=== PATIENT | female | born 1980 | race Caucasian/White ===

== ENCOUNTER 2023-08-08 23:07 | Emergency (ER) | payer MEDICAID, SELFPAY ==
[2023-08-08 23:07] VITALS: BP 133/75; PULSE 70; RESP 16; TEMP 36.6; O2SAT 99; BMI 33.4
[2023-08-08 23:31] VITALS: BP 118/72; PULSE 70; RESP 18; O2SAT 100
--- NOTE | 2023-08-08 23:36 | XR_ITS ---
PROCEDURE INFORMATION: Exam: XR Right Foot Exam date and time: 08/08/2023 11:40 PM Age: 42 years old Clinical indication: Injury or trauma; Fall; Blunt trauma; Foot; Right; Additional info: Fall, eversion injuryf TECHNIQUE: Imaging protocol: Radiologic exam of the right foot. Views: 3 or more views. Total images: 3 COMPARISON: CR XR ANKLE RT MIN 3V 08/08/2023 11:40 PM FINDINGS: Bones/joints: No acute fracture or joint dislocation. No concerning bone lesions or calcifications. Joint spaces are appropriate for age. Benign corticated ossicles lateral to the cuboid. Prominent calcaneal enthesophyte at the Achilles tendon insertion. Acute ankle fracture described separately. Soft tissues: Soft tissue swelling hindfoot and ankle. IMPRESSION: Negative right foot.
--- NOTE | 2023-08-08 23:36 | XR_ITS ---
PROCEDURE INFORMATION: Exam: XR Right Ankle Exam date and time: 08/08/2023 11:40 PM Age: 42 years old Clinical indication: Injury or trauma; Fall; Blunt trauma; Ankle; Right; Additional info: Fall, eversion injury TECHNIQUE: Imaging protocol: Radiologic exam of the right ankle. Views: 3 or more views. Total images: 6 COMPARISON: CR XR FOOT RT MIN 3V 08/08/2023 11:40 PM FINDINGS: Bones/joints: Acute mildly comminuted and displaced fracture of the distal fibula at the lateral malleolus. Lateral malleolus is displaced posterior to the proximal shaft on the lateral view. There is disruption of the ankle mortise. Acute mildly displaced transverse fracture through the base of the medial malleolus. Also, suspect acute fracture of the posterior malleolus. Tibiotalar joint effusion. No joint dislocation. Soft tissues: Moderate soft tissue swelling. IMPRESSION: 1. Acute trimalleolar right ankle fracture without dislocation. 2. Soft tissue swelling and joint effusion.
--- NOTE | 2023-08-08 23:38 | ED_ITS ---
Discharge Plan Disposition Patient Disposition: Home, Self-Care Prescriptions Prescriptions: New oxycodone 5 mg tablet 10 mg PO Q8H PRN (Reason: pain) 3 Days Qty: 18 0RF ondansetron HCl 4 mg tablet 4 mg PO Q8H PRN (Reason: nausea and vomiting) 5 Days Qty: 30 0RF Referrals Follow up/Referrals: Cody Gibbons DO [Staff Physician] - See instructions Patrick Pierre MD [Emergency Provider] - See instructions Provider,MD Kacie [Primary Care Provider] - See instructions Activity Restrictions/Add. Instructions Additional Instructions/Restrictions: Please take Tylenol and ibuprofen every 6 hours as needed for pain. Please take 5 to 10 mg of oxycodone every 8 hours as needed for pain. Please keep leg elevated as much as possible as this will reduce the swelling and expedite operative intervention. Use ice as needed. Please return to the ER with any new or worsening symptoms. Please call Dr. Gibbons's office on Friday to schedule follow-up. Clinical Impressions Clinical Impression: Closed trimalleolar fracture of ankle Qualifiers: Encounter type: initial encounter Laterality: right Qualified Code(s): S82.851A - Displaced trimalleolar fracture of right lower leg, initial encounter for closed fracture Discharge ED Provider: Patrick Pierre General Adult HPI General Chief complaint: Fall Stated complaint: rt ankle pain Time Seen by Provider: 08/08/23 23:15 Mode of Arrival: EMS Source of Information: Patient and EMS Limitations: Physical Limitations Description of Symptoms (Recalled from ER Triage Doc. by RN): Pt presents to Ed via EMS for R ankle injury. Pt states she slid down a hill and her ankle went in the opposite direction and she heard a pop and crack . Pt's ankle was stabalized by EMS. Pt is A&O*4 at this time. History of Present Illness HPI narrative: 42-year-old female without significant past medical history presents with acute right ankle injury after a fall from standing. She denies any other injuries. She reports that she felt and heard multiple cracks, she has been unable to bear weight since the injury which happened approximately 1.5 hours prior to arrival. She was given 25 fentanyl and 4 Zofran with EMS and route. She reports normal sensation. She reports reduced range of motion secondary to pain. Related Data Previous Rx's Medication Instructions Recorded ondansetron HCl 4 mg tablet 4 mg PO Q8H PRN nausea and 08/09/23 vomiting 5 days #30 tabs oxycodone 5 mg tablet 10 mg (2 x 5 mg) PO Q8H PRN pain 3 08/09/23 days #18 tabs Allergies Allergy/AdvReac Type Severity Reaction Status Date / Time No Known Allergies Allergy Verified 12/29/17 16:30 [facility] Disclaimer: The information contained in this section may have been updated after the patient was seen, as this information can be updated by other users. Social History Smoking Status: Current every day smoker tobacco type: cigarettes alcohol intake: never current occupational status: employed Travel in the last 8 weeks: None ROS Obtained: Yes All systems reviewed & no additional complaints except as documented Physical Exam General General appearance: alert and in no apparent distress Head Head exam: atraumatic and normocephalic Eye Eye exam: Present normal appearance, PERRL and EOMI ENT ENT exam: Present normal oropharynx and normal external ear exam Neck Neck exam: Present normal inspection and full ROM Chest Chest inspection: Present normal inspection and symmetric chest wall rise; Absent tenderness Respiratory Respiratory exam: Present normal lung sounds bilaterally; Absent respiratory distress Cardiovascular Cardiovascular exam: Present regular rate and normal rhythm Abdominal Exam Abdominal exam: Present soft; Absent distention, tenderness or guarding Extremities Exam Extremities exam: Present other (Normal capillary refill, palpable DP and PT pulse. Moderate to severe diffuse ankle swelling with tenderness over the medial and lateral malleoli. Severe pain with any range of motion of the ankle. No tenderness over the proximal tib-fib.) Back Exam Back exam: Present normal inspection; Absent tenderness Neurological Exam Neurological exam: Present alert and oriented X3; Absent motor sensory deficit Psychiatric Psychiatric exam: Present normal affect and normal mood Skin Skin exam: Present warm, dry and normal color Lymphatic Lymphatic Findings: no adenopathy Medical Decision Making Medical Records Medical records reviewed: Yes I reviewed the patient's medical records. Jasson Inquiry Pt receiving controlled substance: No Jasson was queried for this patient: No Vital Signs: 08/08/23 23:07 08/08/23 23:31 08/09/23 00:00 Temperature 97.9 F Temperature Source Oral Pulse Rate 70 78 Pulse Rate [Left] 70 Respiratory Rate 16 18 16 Blood Pressure 118/72 127/73 Blood Pressure [Right Arm] 133/75 Blood Pressure Mean [Right Arm] 94 02 Sat by Pulse Oximetry 99 100 99 Oxygen Delivery Method Room Air Room Air Room Air 08/09/23 00:54 08/09/23 01:01 08/09/23 01:04 Temperature Temperature Source Pulse Rate 76 135 H 139 H Pulse Rate [Left] Respiratory Rate 16 15 19 Blood Pressure 156/92 H 185/107 H 197/99 H Blood Pressure [Right Arm] Blood Pressure Mean [Right Arm] 02 Sat by Pulse Oximetry 99 97 96 Oxygen Delivery Method Nasal Cannula Nasal Cannula Nasal Cannula 08/09/23 01:06 08/09/23 01:11 08/09/23 01:16 Temperature Temperature Source Pulse Rate 135 H 128 H 125 H Pulse Rate [Left] Respiratory Rate 16 16 14 Blood Pressure 181/96 H 190/105 H 177/102 H Blood Pressure [Right Arm] Blood Pressure Mean [Right Arm] 02 Sat by Pulse Oximetry 96 100 99 Oxygen Delivery Method Nasal Cannula Nasal Cannula Nasal Cannula 08/09/23 01:24 08/09/23 01:30 08/09/23 01:46 Temperature Temperature Source Pulse Rate 119 H 97 H 79 Pulse Rate [Left] Respiratory Rate 20 13 15 Blood Pressure 172/99 H 156/97 H 129/88 Blood Pressure [Right Arm] Blood Pressure Mean [Right Arm] 02 Sat by Pulse Oximetry 99 99 98 Oxygen Delivery Method Nasal Cannula Nasal Cannula Room Air 08/09/23 02:00 08/09/23 02:11 08/09/23 03:24 Temperature 97.8 F Temperature Source Oral Pulse Rate 82 80 82 Pulse Rate [Left] Respiratory Rate 12 20 18 Blood Pressure 133/82 139/84 142/80 H Blood Pressure [Right Arm] Blood Pressure Mean [Right Arm] 02 Sat by Pulse Oximetry 98 99 Oxygen Delivery Method Room Air Room Air Room Air Lab Data Lab results reviewed: Yes I reviewed the patient's lab results. Orders (Tests/Meds): ED MEDICATIONS Discontinued Medications Generic Name Dose Route Start Last Admin Trade Name Sandy PRN Reason Stop Dose Admin Fentanyl Citrate 50 mcg 08/08/23 23:36 08/08/23 23:47 Fentanyl 100mcg/2ml Vial IV 08/08/23 23:37 50 mcg ONCE ONE Administration Ketamine HCl 200 mg 08/09/23 00:35 Ketamine 500mg/10ml Vial 2 mg/kg (200 mg) 08/09/23 00:36 IV ONCE ONE Ketamine HCl 200 mg 08/09/23 00:39 08/09/23 00:53 Ketamine 50mg/1ml Syringe IV 08/09/23 00:40 100 mg ONCE ONE Administration Ketorolac Tromethamine 30 mg 08/08/23 23:36 08/08/23 23:46 Ketorolac 30mg/Ml Vial IV 08/08/23 23:37 30 mg ONCE ONE Administration ORDERS Category Date Time Status Ankle XR -Right minimum 3 Views [XR ankle RT min 3V] Exams 08/08/23 23:36 Completed Stat Ankle XR -Right minimum 3 Views [XR ankle RT min 3V] Exams 08/09/23 01:07 Completed Stat Foot XR right minimum 3 views [XR foot RT min 3V] Stat Exams 08/08/23 23:36 Completed Medical Decision Narrative: 42-year-old female without significant past medical history presents with acute right ankle injury after fall from standing.. History was obtained interactive discussion with patient, EMS. On arrival, patient is [afebrile, hemodynamically stable, satting appropriately, alert, oriented x4, GCS 15], moving all extremities spontaneously. Full physical exam performed and significant for findings as above, normal neurovascular exam, severe swelling and tenderness of the ankle. Injury is closed. Differential includes but is not limited to fracture, dislocation, ne urovascular/limitus injury.. Patient was given 50 fentanyl and 30 of Toradol IV for symptomatic management and correction of underlying abnormalities. Workup initiated including radiographs of the right ankle and foot. On re-evaluation, patient [remains afebrile, HD stable.] Imaging independently interpreted by me and significant for acute trimalleolar fracture of the right ankle. See radiology read for full review of final results. Interactive discussion was had with the orthopedic surgeon on-call, Dr. Gibbons. He recommends stabilization with a splint, given the instability of the fracture he reports that a perfect reduction is not necessary at this time. Interact discussion was had with patient regarding her injury. She was given pain dose ketamine for splint application and ultimately required a total of 100 mg of ketamine for successful analgesia and splinting. Post splint film was interpreted by me and was satisfactory in nature. Given patient history, exam and workup, patient's presentation most likely represents acute right trimalleolar fracture. Patient was discharged in stable condition, she was given strict instructions regarding nonweightbearing status as well as ice and elevation of the leg to reduce swelling. She was discharged with prescription for oxycodone for pain control and will call to follow-up with Dr. Gibbons's clinic on Friday for further assessment and operative intervention.. Procedures Risk/Benefits of Procedure(s) Were Explained: Yes Orthopedic Fracture Reduction Fracture #1: Time Out Performed: Yes Side: right Fracture Reduction Location: tibia and fibula Analgesia: other (pain dose ketamine) Technique: direct manipulation Post Reduction X-rays Demonstrate: acceptable reduction Post-reduction neuro exam: intact Post-reduction vascular exam: intact Splint Applied: Yes Patient Tolerated Procedure: well and no complications Orthopedic Splinting/Casting Injury #1: Side: right Lower Extremity Injury Location: ankle (tri malleolar fracture) Lower Extremity Immobilizer: posterior splint and stirrup splint Other Orthopedic Equipment: crutches Post Cast/Splinting Neuro Status: intact Post Cast/Splinting Vasc Status: intact Critical Care Critical Care Time Critical Care Time: No
[2023-08-08] MEDS: KETOROLAC 30MG/ML VIAL 30 MG IV (23:46)
[2023-08-08] MEDS: FENTANYL 100MCG/2ML VIAL 50 MCG IV (23:47)
[2023-08-09] VITALS (13 sets, daily range): BP systolic 127–197; BP diastolic 73–107; PULSE 76–139; RESP 12–20; TEMP 36.6; O2SAT 96–100
[2023-08-09] MEDS: KETAMINE 50MG/1ML SYRINGE 200 MG IV (00:53)
--- NOTE | 2023-08-09 01:07 | XR_ITS ---
PROCEDURE INFORMATION: Exam: XR Right Ankle Exam date and time: 08/09/2023 1:05 AM Age: 42 years old Clinical indication: Injury or trauma; Fall; Blunt trauma; Ankle; Right; Additional info: Post splint TECHNIQUE: Imaging protocol: Radiologic exam of the right ankle. Views: 3 or more views. Total images: 3 COMPARISON: CR XR ANKLE RT MIN 3V 08/08/2023 11:40 PM FINDINGS: Bones/joints: Improved alignment of acute trimalleolar fracture. No joint dislocation. Improved appearance of the ankle mortise. Stable calcaneal enthesophyte. No acute superimposed osseous abnormality. Soft tissues: Soft tissue swelling. Other findings: Status post closed reduction with application of a plaster cast. IMPRESSION: Satisfactory closed reduction radiograph.
== END 2023-08-09 03:31 | disposition home or self-care (01) ==
PROVIDERS: Emergency Provider Emergency Medicine
DX: S82.851A Displaced trimalleolar fracture of right lower leg, initial encounter for closed fracture (principal); W01.10XA Fall on same level from slipping, tripping and stumbling with subsequent striking against unspecified object, initial encounter; F17.210 Nicotine dependence, cigarettes, uncomplicated; M25.571 Pain in right ankle and joints of right foot
CPT/HCPCS: 29515; 73610; 73630; 96374; 96375; 96376; 99285

== ENCOUNTER 2023-08-11 11:10 | Outpatient (CLI) | payer MEDICAID, SELFPAY ==
--- NOTE | 2023-08-11 11:14 | XR_ITS ---
FINAL REPORT CLINICAL HISTORY: PRE-OP RIGHT ANKLE FINDINGS: 2 views of the chest were obtained . The heart is normal in size. The mediastinum is within normal limits. The lungs are clear. There is no pneumothorax. Osseous structures are unremarkable. IMPRESSION: No acute cardiopulmonary process. Reviewed, Interpreted and Dictated by Jose Guerra III, MD Transcribed by Cecilia Gold Authenticated and [facility]
[2023-08-11 11:55] LABS: Basophils # 0.1 K/mm3 (0-0.2); Basophils % 0.9 % (0.1-2.0); Eosinophils # 0.2 K/mm3 (0.0-0.4); Eosinophils % 2.4 % (0.1-12.0); Hematocrit 34.5 % (37.0-47.0); Hemoglobin 10.9 g/dL (12.2-16.2); Lymphocytes # 1.5 K/mm3 (0.7-4.5); Lymphocytes % 24.4 % (10-50); Mean Corpuscular HGB Conc 31.7 g/dL (31.8-35.4); Mean Corpuscular Hemoglobin 25.6 pg (27.0-31.2); Mean Corpuscular Volume 80.8 fl (81-99); Mean Platelet Volume 10.2 fl (7.4-10.4); Monocytes # 0.3 K/mm3 (0.1-1.0); Monocytes % 4.6 % (1.7-9.3); Neutrophils # 4.1 K/mm3 (1.8-7.8); Neutrophils % 67.7 % (37.0-80.0); Platelet Count 215 K/mm3 (142-424); Red Blood Count 4.27 M/mm3 (4.20-5.40); Red Cell Distribution Width 16.1 % (11.5-17.5); White Blood Count 6.1 K/mm3 (4.8-10.8)
[2023-08-11 12:21] LABS: Alanine Aminotransferase 19 U/L (12-78); Albumin Level 3.7 g/dl (3.5-5.0); Albumin/Globulin Ratio 1.4 (1.1-1.8); Alkaline Phosphatase 56 U/L (38-126); Anion Gap 10.1 mEq/L (5-15); Aspartate Amino Transferase 24 U/L (14-36); Bilirubin,Total 0.3 mg/dl (0.2-1.3); Blood Urea Nitrogen 10 mg/dl (7-17); Calcium 8.4 mg/dl (8.4-10.2); Carbon Dioxide 27 mmol/L (22.0-30.0); Chloride 105 mmol/L (98-107); Estimated Glomerular Filt Rate 79 ml/min (>60); GFR (African American) 95 ML/MIN (>60); Globulin 2.7 g/dL (1.3-3.2); Glucose 91 mg/dl (74-100); Potassium 4.1 mmoL/L (3.5-5.1); Sodium 138 mmol/L (136-145); Total Protein,Serum 6.4 g/dl (6.3-8.2)
== END 2023-08-11 23:59 | disposition home or self-care (01) ==
LOC: LAB 11:11
PROVIDERS: PCP Pediatrics; Visit Provider Physician Assistant Surgical
DX: S82.851A Displaced trimalleolar fracture of right lower leg, initial encounter for closed fracture (principal)
CPT/HCPCS: 36415; 71046; 80053; 85025

== ENCOUNTER 2023-08-13 10:07 | Day surgery (SDC) | payer MEDICAID, SELFPAY ==
[2023-08-13] VITALS (10 sets, daily range): BP systolic 134–159; BP diastolic 77–94; PULSE 76–111; RESP 14–18; TEMP 36.6–37; O2SAT 94–99; BMI 33.1
--- NOTE | 2023-08-13 11:25 | SUR.PREOP ---
Pt states she is on a fluid pill as needed . She cannot remember the name and there is nothing on her external medication history. Will attempt to call her PCP's office.
[2023-08-13 11:58] LABS: HCG Qualitative, Serum Negative (Negative)
--- NOTE | 2023-08-13 12:01 | EXP.ANES.CKL ---
[facility] Disclaimer: The information contained in this section may have been updated after the patient was seen, as this information can be updated by other users. Medical History (Updated 08/13/23 @ 11:22 by Smiley Schulte RN) History of COVID-19 History of anemia Surgical History (Updated 08/13/23 @ 11:21 by Smiley Schulte RN) H/O dilation and curettage H/O tubal ligation Family History (Updated 08/13/23 @ 11:23 by Smiley Schulte RN) Other No significant family history Social History (Updated 08/13/23 @ 11:23 by Smiley Schulte RN) Smoking Status: Current every day smoker tobacco type: cigarettes alcohol intake: current substance use type: denies use current occupational status: employed Travel in the last 8 weeks: None [facility] Anesthesia Checklist Patient Identification Patient Identification: Arm Band and Family Structural Data Admitted From: Home Planned Operative Procedure/s: Ankle surgery Consent for Planned Operative Procedure(s) Verified: Yes Verified Documents: Surgical Consent and History and Physical NPO Status Verified Time NPO: 00:00 Additional verifications Patient : No Anesthesia Reactions: No Hx Blood Transfusions: No Blood Transfusion Reaction: No Cephalosporin Allergy: No Previous Colonoscopy: No Airway Assessment Mallampati Score:: Class II C-Spine Mobility Assessed: Yes TMJ Mobility Assessed: Yes Dentition: Good Dentition Neurological Assessment Level of Consciousness: Awake, Alert, Appropriate and Follows Commands Hx Seizures: No Numbness or tingling in extremities: No Anesthesia Plan Anesthesia Risk discussed: Yes ASA Class: I Anesthesia Type: General w/block
[2023-08-13] MEDS: CEFAZOLIN SODIUM 2 GM in 0.9 % SODIUM CHLORIDE 100 ML IV (13:45)
--- NOTE | 2023-08-13 15:01 | XR_ITS ---
FINAL REPORT CLINICAL HISTORY: RIGHT ANKLE ORIF FLUORO TIME: 1.12 2.93 MGY COMPARISON: None FINDINGS: FLUOROSCOPY LESS THAN 1 HOUR HISTORY: Intraoperative FINDINGS: Fluoroscopic guidance was provided for intraoperative placement of orthopedic instrumentation. 2 spot films were obtained. 72 seconds of fluoroscopy time were used. The cumulative dosage was measured at 2.93 mGy. IMPRESSION: As above. Reviewed, Interpreted and Dictated by Jose Guerra III, MD Transcribed by Tina Tierney Authenticated and [facility]
--- NOTE | 2023-08-13 15:14 | EXP.OP.NOTE ---
Date of procedure: 08/13/23 Pre-op Diagnosis:: Right ankle trimalleolar fracture, displaced Post-op Diagnosis:: Same Procedure performed:: Open reduction internal fixation right trimalleolar ankle fracture without fixation of the posterior malleolus Surgeon:: Cody Gibbons DO Tire Installer(s):: TRUDY Rivas MONOTYPE MECHANIC:: Shelton Padilla Anesthesia: GETA and regional Estimated blood loss (mL): 5 Clinical Note:: 42-year-old female with a severely displaced subluxed trimalleolar ankle fracture. Status post reduction in the emergency room unstable fracture pattern required open reduction internal fixation presented today for such Operative findings:: See dictation Operative note:: Patient was identified preoperatively right ankle was marked with yes and my initials she was then given a block with anesthesia and taken to the operating room placed upon the radiolucent bed right lower extremity was removed from the splint and prepped and draped normal sterile fashion. Once prepped and draped final operative timeout performed to identify proper patient procedure and extremity. Everyone involved the case agreed there were no counter indications to beginning. She did receive preoperative antibiotics. Marking pen was used to jake the bony landmarks of the ankle x-ray was brought into identify the fracture site Esmarch was used to exsanguinate the extremity. Pneumatic tourniquet inflated to 300 mmHg. Skin knife was then used to incise the skin down to the fracture site. The fracture site was seen and cleaned there was comminution of the anterior aspect of the cortex of the fibula and soft tissue incarcerated in the fracture site. The fracture site was then cleaned this comminution was maintained and utilized for bone grafting at the fracture site. Pulmonary reduction was performed with a [id number] and lobster claw clamps and then luminary fixation was held with K wires. Plate from the [employer] fibular plate was selected and placed on the bone. Distal screws were placed first given the comminution at the fracture site lag screw was unable to be placed because of comminution of this anterior cortex. Once the plate was placed and distal screws were placed shaft screws were then placed proximal to the fracture. 3 screws were placed above the fracture. This gave good reduction of the ankle bone graft was completed at the anterior comminution site this gave good reduction of the talus back under the tibia and also perfectly reduced the medial malleolus X-rays were brought into the AP and lateral views to evaluate the medial malleolus fragment. K wires were placed from the 4 oh cannulated set into the medial malleolus and reduced into anatomic position which were followed by the cannulated drill bit and to size 42 4.0 mm cannulated screws to fixate the medial malleolus fragment. Once this was complete the AP lateral views were taken and saved the syndesmosis was stressed and did not gap. Irrigation of wound performed deep layers over the plate closed with 0 Vicryl subcutaneous with 2-0 Vicryl 3-0 nylon in simple fashion around the skin single skin stitches in both poke holes on the medial side also utilized sterile dressing placed well-padded posterior and sterile splint placed patient waken anesthesia taken recovery stable condition. Condition: stable Disposition: PACU Complications:: None apparent
--- NOTE | 2023-08-13 15:40 | EXP.ANES.I ---
[facility] Anesthesia Record Part I Anesthesia Record I Intake, IV Amount: 1,100 Hydration: Adequate Estimated blood loss (mL): 10 Urine output (mL): 0 Blood Products used (#): none Blood Pressure: 157/88 SaO2: 97 Pulse Rate: 104 Airway Patency: Patent Respiratory Rate: 14 Temperature: 98.6 F Patient is:: Drowsy and Stable Stable to PACU at:: 15:33
[2023-08-13] MEDS: ONDANSETRON 4MG/2ML VIAL 4 MG (15:42)
[2023-08-14 09:31] VITALS: BP 155/91; PULSE 102; RESP 18; TEMP 37; O2SAT 98
--- NOTE | 2023-08-14 09:31 | P.PNANES_ITS ---
[facility] Anesthesia Record Part II Anesthesia Record Part II Discharge Time: 16:03 Destination: Surgical Day Care (OP Surgery) PACU nurse assessment reviewed?: Yes Patient Condition:: Good Anesthesia Complications:: None Swallowing reflex intact?: Yes Airway Patency: Patent Cyanosis?: No Blood Pressure: 155/91 SaO2: 98 Respiratory Rate: 18 Pulse Rate: 102 Temperature: 98.6 F Mental Status: Alert & Oriented Pain level:: 0 Nausea and/or vomitting:: None Intake, IV Amount: 0 Hydration: Adequate
== END 2023-08-13 17:00 | disposition home or self-care (01) ==
PROVIDERS: PCP Pediatrics; Visit Provider Orthopaedic Surgery
PROC: (CPT 27822; principal; 2023-08-13 11:45)
DX: S82.851A Displaced trimalleolar fracture of right lower leg, initial encounter for closed fracture (principal); F17.210 Nicotine dependence, cigarettes, uncomplicated; W01.0XXA Fall on same level from slipping, tripping and stumbling without subsequent striking against object, initial encounter
CPT/HCPCS: 27822; 73600; 76000; 84703; C1713; J0690; J1100; J2250; J2405; J3010

== ENCOUNTER 2023-08-28 10:28 | Outpatient (CLI) | payer MEDICAID, SELFPAY ==
--- NOTE | 2023-08-28 10:35 | XR_ITS ---
FINAL REPORT CLINICAL HISTORY: right ankle orif COMPARISON: 08/09/2023 FINDINGS: RIGHT ANKLE 3 views of the right ankle were obtained. There are post ORIF changes of trimalleolar fractures. The hardware is unremarkable. The ankle mortise is intact. Soft tissues are unremarkable. IMPRESSION: Post ORIF changes with intact hardware. Reviewed, Interpreted and Dictated by Lakesha Prado MD Transcribed by Lyudmila Daugherty Authenticated and [facility]
== END 2023-08-28 23:59 | disposition home or self-care (01) ==
LOC: RAD 10:30
PROVIDERS: PCP Pediatrics; Visit Provider Pediatrics
DX: M25.571 Pain in right ankle and joints of right foot (principal); S82.851A Displaced trimalleolar fracture of right lower leg, initial encounter for closed fracture
CPT/HCPCS: 73610

== ENCOUNTER 2023-08-28 11:44 | Outpatient (RCR) | payer MEDICAID, SELFPAY | END 2023-08-28 14:00 | disposition home or self-care (01) | LOC: PT 11:44 | PROVIDERS: Visit Provider Orthopaedic Surgery | DX: M25.571 Pain in right ankle and joints of right foot (principal); S82.851A Displaced trimalleolar fracture of right lower leg, initial encounter for closed fracture ==

== ENCOUNTER 2023-09-18 12:56 | Outpatient (CLI) | payer MEDICAID, SELFPAY ==
--- NOTE | 2023-09-18 12:57 | XR_ITS ---
FINAL REPORT CLINICAL HISTORY: right orif ankle August 12 FINDINGS: 3 VIEWS RIGHT ANKLE Three views show no evidence of acute displaced fracture or dislocation of the visualized bony architecture. There are post ORIF changes of the medial malleolus and distal fibula. There are tiny chronic avulsion fractures at the tip of the medial malleolus. The ankle mortise is intact. IMPRESSION: Healed fractures without acute findings. Authenticated and [facility]
== END 2023-09-18 23:59 | disposition home or self-care (01) ==
LOC: RAD 12:57
PROVIDERS: PCP Pediatrics; Visit Provider Orthopaedic Surgery
DX: S82.851A Displaced trimalleolar fracture of right lower leg, initial encounter for closed fracture; M25.571 Pain in right ankle and joints of right foot
CPT/HCPCS: 73610

== ENCOUNTER 2023-10-16 12:42 | Outpatient (CLI) | payer MEDICAID, SELFPAY ==
--- NOTE | 2023-10-16 12:58 | XR_ITS ---
FINAL REPORT CLINICAL HISTORY: xr rt ankle fx and surgery 9 wks ago COMPARISON: 09/18/2023 FINDINGS: Right ankle Three views were obtained. There are postoperative changes of the distal medial tibia and fibula. There is a fracture of the distal fibula and medial malleolus. Soft tissue swelling is seen. Note is made of calcaneal spurs. IMPRESSION: Fractures as above. Reviewed, Interpreted and Dictated by Jose Guerra III, MD Transcribed by Lizzette Ware Authenticated and [facility]
== END 2023-10-16 23:59 | disposition home or self-care (01) ==
LOC: RAD 12:43
PROVIDERS: PCP Family Medicine; Visit Provider Orthopaedic Surgery
DX: M25.579 Pain in unspecified ankle and joints of unspecified foot (principal)
CPT/HCPCS: 73610